=== PATIENT | female | born 1990 | race Caucasian/White ===

== ENCOUNTER 2021-01-15 11:50 | Emergency (ER) | payer BC ==
[~2021-01-15] VITALS: Ht 167.6 cm; Wt 77.1 kg
[2021-01-15 12:18] VITALS: BP 116/71
== END 2021-01-15 12:19 | disposition left against medical advice (07) ==
LOC: M.ERS 11:50
DX: O26.893 Other specified pregnancy related conditions, third trimester (principal); R10.9 Unspecified abdominal pain; Z53.21 Procedure and treatment not carried out due to patient leaving prior to being seen by health care provider; Z3A.27 27 weeks gestation of pregnancy